=== PATIENT | male | born 1990 | race African-American/Black ===

== ENCOUNTER 2023-02-22 02:30 | Inpatient (IN) | payer OTHER ==
[2023-02-22 02:42] VITALS: BMI 23.4
[2023-02-22 05:31] LABS: POTASSIUM 3.8 mmol/L (3.5-5.1)
[2023-02-22 05:33] LABS: ALBUMIN 4.4 g/dl (3.4-5.0); BLOOD UREA NITROGEN 11.4 mg/dL (7-18); CALCIUM 9.8 mg/dL (8.5-10.1); MAGNESIUM 1.9 mg/dL (1.8-2.4)
[2023-02-22 05:37] LABS: CREATININE 0.7 mg/dL (0.55-1.3)
[2023-02-22 05:38] LABS: BASO % 0.2 % (0-2.0); BILIRUBIN,TOTAL 0.5 mg/dL (0.2-1); EOS % 3.3 % (0-4.5); HEMATOCRIT 49.7 % (35.4-49); MCH 28.6 pg (25.7-33.7); MCHC 32.1 g/dl (32.0-35.9); MEAN CELL VOLUME 88.9 fl (80-96); MONO % 11.1 % (3.8-10.2); NEUT % 73.4 % (42.8-82.8); PLATELET COUNT 191 10^3/uL (134-434); RBC 5.59 M/mm3 (4.00-5.60); RDW 13.4 % (11.9-15.9); TOT PROT 8.7 g/dl (6.4-8.2)
[2023-02-22 06:10] LABS: PH,URINE 6.5 (5.0-8.0); URINE APPEARANCE CLEAR; URINE BILIRUBIN NEGATIVE (NEGATIVE); URINE COLOR YELLOW; URINE GLUCOSE (UA) NEGATIVE (NEGATIVE); URINE KETONE NEGATIVE (NEGATIVE); URINE LEUK ESTERASE NEGATIVE (NEGATIVE); URINE NITRITE NEGATIVE (NEGATIVE); URINE PROTEIN NEGATIVE (NEGATIVE)
[2023-02-22 06:14] LABS: LACTIC ACID 2.4 mmol/L (0.4-2.0)
[2023-02-22] MEDS ORDERED: VANCOMYCIN 1,000 MG in DEXTROSE 5%-WATER - 250 ML IVPB ONE (06:41)
[2023-02-22] MEDS ORDERED: SODIUM CHLORIDE 0.9% 500 ML INFUS.BAG IV ONE (06:41)
[2023-02-22] MEDS ORDERED: PIPERACILLIN/TAZOB 4.5 GM 4.5 GM in DEXTROSE 5%-WATER 100 ML IVPB ONE (06:41)
[2023-02-22] MEDS ORDERED: PIPERACILLIN/TAZOB 4.5 GM 4.5 GM/100 ML BAG IVPB ONE (06:53)
[2023-02-22] MEDS ORDERED: VANCOMYCIN 1 GRAM (PRE-DOCKED) 1,000 MG/250 ML BAG IVPB ONE (06:53)
[2023-02-22] MEDS ORDERED: LORazepam 2 MG/ML SDV VIAL IVPUSH ONE (09:00)
[2023-02-22] MEDS ORDERED: lamoTRIgine 100 MG TABLET PO ONE (10:00)
[2023-02-22] MEDS ORDERED: OXcarbazepine 300 MG TABLET (UD) PO SCH (10:00)
[2023-02-22] MEDS ORDERED: BACLOFEN 10 MG TABLET (FP) ONE ×2 (10:33→14:19)
[2023-02-22] MEDS ORDERED: lamoTRIgine 100 MG TABLET ONE (10:33)
[2023-02-22] MEDS: BACLOFEN 10 MG TABLET (FP) PO SCH ×4 (10:59→22:37)
[2023-02-22] MEDS ORDERED: TOPIRAMATE 200 MG PO SCH (12:45)
[2023-02-22] MEDS: LORATADINE 10 MG TABLET PO SCH (12:57)
[2023-02-22] MEDS ORDERED: BACLOFEN 10 MG TABLET (FP) PO SCH (13:15)
[2023-02-22] MEDS ORDERED: TOPIRAMATE 100 MG TABLET ONE (13:55)
[2023-02-22] MEDS: TOPIRAMATE 200 MG TABLET PO SCH ×2 (13:56→22:44)
[2023-02-22] MEDS ORDERED: lamoTRIgine 100 MG TABLET PO SCH (22:00)
[2023-02-22] MEDS ORDERED: PATIENT'S OWN MEDICATION (NON-FORMULARY) (Oxcarbazepine [Oxtellar Xr] 600 MG Tab.Er.24h) PO SCH (22:00)
[2023-02-22] MEDS ORDERED: LAMOTRIGINE 200 MG PO SCH (22:00)
[2023-02-22] MEDS: cloBAZam 10 MG TABLET PO SCH (22:37)
[2023-02-22] MEDS: OXcarbazepine 300 MG TABLET (UD) PO SCH (22:37)
[2023-02-22] MEDS: lamoTRIgine 100 MG TABLET PO SCH (22:38)
[2023-02-23 07:49] LABS: BASO % 0.2 % (0-2.0); EOS % 4.8 % (0-4.5); HEMATOCRIT 44.5 % (35.4-49); HEMOGLOBIN 14.3 GM/dL (11.7-16.9); MCH 28.9 pg (25.7-33.7); MCHC 32.3 g/dl (32.0-35.9); MEAN CELL VOLUME 89.7 fl (80-96); MEAN PLT VOLUME 10.2 fl (7.5-11.1); MONO % 11.7 % (3.8-10.2); NEUT % 60.3 % (42.8-82.8); PLATELET COUNT 186 10^3/uL (134-434); RBC 4.96 M/mm3 (4.00-5.60); RDW 13.1 % (11.9-15.9); WHITE BLOOD COUNT 6.5 K/mm3 (4.0-10.0)
[2023-02-23 08:44] LABS: POTASSIUM 3.8 mmol/L (3.5-5.1)
[2023-02-23 08:46] LABS: ALBUMIN 3.6 g/dl (3.4-5.0); BLOOD UREA NITROGEN 7.5 mg/dL (7-18); MAGNESIUM 1.9 mg/dL (1.8-2.4)
[2023-02-23 08:48] LABS: PHOSPHOROUS 3.6 mg/dL (2.5-4.9)
[2023-02-23 08:49] LABS: CREATININE 0.5 mg/dL (0.55-1.3)
[2023-02-23 08:51] LABS: BILIRUBIN,TOTAL 0.5 mg/dL (0.2-1); TOT PROT 7.5 g/dl (6.4-8.2)
[2023-02-23] MEDS: LORATADINE 10 MG TABLET PO SCH (09:54)
[2023-02-23] MEDS: TOPIRAMATE 100 MG TABLET PO SCH ×2 (09:54→22:56)
[2023-02-23] MEDS: lamoTRIgine 100 MG TABLET PO SCH ×2 (09:55→22:56)
[2023-02-23] MEDS: BACLOFEN 10 MG TABLET (FP) PO SCH ×4 (09:55→22:56)
[2023-02-23] MEDS: ENOXAPARIN NA (PORCINE) 40 MG/0.4 ML DISP.SYRIN SQ SCH (09:56)
[2023-02-23] MEDS: OXcarbazepine 300 MG TABLET (UD) PO SCH ×2 (09:57→22:56)
[2023-02-23] MEDS ORDERED: LAMOTRIGINE 300 MG PO SCH (10:00)
[2023-02-23] MEDS: cloBAZam 10 MG TABLET PO SCH (22:56)
[2023-02-24] MEDS ORDERED: OXcarbazepine 150 MG TABLET (UD) PO SCH (05:42)
[2023-02-24 06:49] VITALS: RESP 18
[2023-02-24 09:22] VITALS: BP 154/81; PULSE 94; TEMP 98.7
[2023-02-24] MEDS: BACLOFEN 10 MG TABLET (FP) PO SCH ×2 (09:25→14:04)
[2023-02-24] MEDS: lamoTRIgine 100 MG TABLET PO SCH (09:25)
[2023-02-24] MEDS: LORATADINE 10 MG TABLET PO SCH (09:25)
[2023-02-24] MEDS: TOPIRAMATE 100 MG TABLET PO SCH (09:25)
[2023-02-24] MEDS: ENOXAPARIN NA (PORCINE) 40 MG/0.4 ML DISP.SYRIN SQ SCH (09:25)
[2023-02-24 09:33] LABS: HEMATOCRIT 43.8 % (35.4-49); HEMOGLOBIN 14.4 GM/dL (11.7-16.9); MCH 28.8 pg (25.7-33.7); MCHC 32.9 g/dl (32.0-35.9); MEAN CELL VOLUME 87.5 fl (80-96); MEAN PLT VOLUME 8.9 fl (7.5-11.1); PLATELET COUNT 170 10^3/uL (134-434); RBC 5.01 M/mm3 (4.00-5.60); RDW 13.7 % (11.9-15.9); WHITE BLOOD COUNT 6.4 K/mm3 (4.0-10.0)
[2023-02-24 09:49] LABS: POTASSIUM 3.7 mmol/L (3.5-5.1)
[2023-02-24 09:52] LABS: ALBUMIN 3.6 g/dl (3.4-5.0); BLOOD UREA NITROGEN 8.6 mg/dL (7-18); CALCIUM 9.2 mg/dL (8.5-10.1); MAGNESIUM 1.7 mg/dL (1.8-2.4)
[2023-02-24 09:55] LABS: CREATININE 0.6 mg/dL (0.55-1.3); PHOSPHOROUS 2.7 mg/dL (2.5-4.9)
[2023-02-24 09:57] LABS: BILIRUBIN,TOTAL 0.4 mg/dL (0.2-1); TOT PROT 7.7 g/dl (6.4-8.2)
== END 2023-02-24 16:14 | disposition home or self-care (01) | DRG 53 ==
LOC: JER 02:30 → JERBED 08:45 → J4W 18:19
PROVIDERS: ADMIT Internal Medicine; ATTEND Internal Medicine
DX: G40.909 Epilepsy, unspecified, not intractable, without status epilepticus (principal); M41.9 Scoliosis, unspecified; G93.49 Other encephalopathy; R62.50 Unspecified lack of expected normal physiological development in childhood; J45.909 Unspecified asthma, uncomplicated; I69.351 Hemiplegia and hemiparesis following cerebral infarction affecting right dominant side; G93.89 Other specified disorders of brain
CPT/HCPCS: 0241U-QW; 36415; 70450-TC; 71045-TC-FY; 80053; 80175; 80201; 81003; 82550; 82553; 83605; 83735; 84100; 84443; 85025; 85027; 87040; 87086; 93005; 93010; 99285-25; J0475